=== PATIENT | female | born 1995 | race Caucasian/White ===

== ENCOUNTER 2017-06-19 13:53 | Emergency (ER) | payer BC ==
[2017-06-19 14:13] VITALS: BP 111/60; PULSE 69; RESP 18; TEMP 98.5; O2SAT 99
[2017-06-19] MEDS ORDERED: Iohexol 300 100 ML IJ ONE (15:44)
[2017-06-19] MEDS ORDERED: Sodium Chloride 0.9% 50 ML IV ONE (15:45)
--- NOTE | 2017-06-19 15:48 | ED PDOC ---
HPI: Abdomen Time Seen by Provider: 06/19/17 15:14 Chief Complaint (Nursing): Abdominal Pain Chief Complaint (Provider): Abdominal Pain History Per: Patient History/Exam Limitations: no limitations Onset/Duration Of Symptoms: Days Current Symptoms Are (Timing): Still Present Additional Complaint(s): 21 year old female presents to the emergency department with a complaint of a left-sided abdominal pain with fever, nausea, and vomiting x2 days. Patient has a history of diverticulitis. Denies diarrhea or urinary symptoms. Past Medical History Reviewed: Historical Data, Nursing Documentation, Vital Signs Vital Signs: Last Vital Signs Temp 98.5 F 06/19/17 14:12 Pulse 69 06/19/17 14:12 Resp 18 06/19/17 14:12 BP 111/60 06/19/17 14:12 Pulse Ox 99 06/19/17 15:48 - Medical History PMH: Asthma, Diverticulitis - Family History Family History: States: Diabetes, Hypertension - Social History Current smoker - smoking cessation education provided: No - Home Medications Home Medications: Ambulatory Orders Medication Instructions Recorded Ciprofloxacin/Ciprofloxa HCl 500 mg PO Q12 #14 tab 01/31/15 [Ciprofloxacin] Dicyclomine [Bentyl] 20 mg PO Q12 PRN #20 tab 01/31/15 Metronidazole [Flagyl] 500 mg PO Q12 #20 tab 01/31/15 Naproxen [Naprosyn] 500 mg PO Q12H #20 tab 06/19/17 - Allergies Allergies/Adverse Reactions: Allergies Allergy/AdvReac Type Severity Reaction Status Date / Time No Known Allergies Allergy Verified 01/30/15 21:27 Review of Systems ROS Statement: Except As Marked, All Systems Reviewed And Found Negative (As per HPI, otherwise negative) Constitutional: Positive for: Fever Gastrointestinal: Positive for: Nausea, Vomiting, Abdominal Pain. Negative for : Diarrhea Genitourinary Female: Negative for: Dysuria, Frequency, Incontinence, Hematuria Physical Exam - Reviewed Nursing Documentation Reviewed: Yes - Physical Exam Appears: Positive for: No Acute Distress Head Exam: Positive for: NORMAL INSPECTION Skin: Positive for: Normal Color, Warm, Dry Cardiovascular/Chest: Positive for: Regular Rate, Rhythm. Negative for: Murmur Respiratory: Positive for: Normal Breath Sounds. Negative for: Accessory Muscle Use, Respiratory Distress Gastrointestinal/Abdominal: Positive for: Soft, Tenderness (Mild LLQ tenderness) . Negative for: Normal Exam, Guarding, Rebound Back: Positive for: Normal Inspection. Negative for: L CVA Tenderness, R CVA Tenderness Neurologic/Psych: Positive for: Alert, Oriented (x3) - Laboratory Results Result Diagrams: 06/19/17 15:40 06/19/17 15:40 - ECG O2 Sat by Pulse Oximetry: 99 (RA) Pulse Ox Interpretation: Normal Medical Decision Making Medical Decision Making: Time: 1528 Initial Impression: Abdominal pain Initial Plan: VBG Shock Panel CMP Urine DIP Urine Preg CBC w. diff Iohexol 100 ml IJ Blood culture Abd & Pelvis IV Contrast CT reevaluation Scribe Attestation: Documented by Bryanna Blum, acting as a scribe for Abdi Lorenzo MD. Provider Scribe Attestation: All medical record entries made by the Scribe were at my direction and personally dictated by me. I have reviewed the chart and agree that the record accurately reflects my personal performance of the history, physical exam, medical decision making, and the department course for this patient. I have also personally directed, reviewed, and agree with the discharge instructions and disposition. Disposition - Clinical Impression Clinical Impression: Ovarian cyst - Patient ED Disposition Is Patient to be Admitted: No Counseled Patient/Family Regarding: Studies Performed, Diagnosis, Need For Followup, Rx Given - Disposition Referrals: [facility] [Outside] Disposition: Routine/Home Disposition Time: 17:34 Condition: FAIR Prescriptions: Naproxen [Naprosyn] 500 mg PO Q12H #20 tab Instructions: Ovarian Cyst (ED) Forms: [employer] (Swiss)
[2017-06-19 15:49] LABS: VENOUS BLOOD GAS BASE EXCESS 2.6 mmol/L (0.0-2.0); VENOUS BLOOD GAS PCO2 50 mmHg (40-60); VENOUS BLOOD GAS PO2 19 mm/Hg (30-55); VENOUS BLOOD PH 7.37 (7.32-7.43)
[2017-06-19 16:06] LABS: ALB/GLOB RATIO 1.3 (1.0-2.1); ALBUMIN 4.3 g/dL (3.5-5.0); ALT/SGPT 22 U/L (9-52); AST/SGOT 18 U/L (14-36); BASO # 0.1 K/uL (0.0-0.2); BASO % 1.1 % (0.0-2.0); BLOOD UREA NITROGEN 11 mg/dl (7-17); CALCIUM 9.1 mg/dL (8.4-10.2); EOS # 0.2 K/uL (0.0-0.7); EOS % 2.6 % (0.0-4.0); GFR AFRICAN-AMERICAN > 60; GFR NON-AFRICAN AMERICAN > 60; HEMOGLOBIN 13.4 g/dL (12.0-16.0); LYMPH # 1.8 K/uL (1.0-4.3); LYMPH % 27.9 % (20.0-40.0); MEAN CELL VOLUME 85.5 fl (81.0-99.0); MEAN CORPUSCULAR HEMOGLOBIN 28.3 pg (27.0-31.0); MEAN CORPUSCULAR HGB CONC 33.1 g/dL (33.0-37.0); MEAN PLATELET VOLUME 10.1 fl (7.2-11.7); MONO # 0.7 K/uL (0.0-0.8); MONO % 10.7 % (0.0-10.0); NEUT # 3.7 K/uL (1.8-7.0); NEUT % 57.7 % (50.0-75.0); NRBC % 0.1 % (0.0-0.0); RBC 4.73 Mil/uL (3.80-5.20); RED CELL DISTRIBUTION WIDTH 12.7 % (11.5-14.5); WHITE BLOOD COUNT 6.4 K/uL (4.8-10.8)
--- NOTE | 2017-06-19 17:01 | CT ---
PROCEDURE: CT Abdomen and Pelvis with contrast HISTORY: h/o diverticulitis COMPARISON: 01/31/2015 TECHNIQUE: Contrast dose: 95 mL Omnipaque 300 Radiation dose: Total exam DLP = 725.17 mGy-cm. This CT exam was performed using one or more of the following dose reduction techniques: Automated exposure control, adjustment of the mA and/or kV according to patient size, and/or use of iterative reconstruction technique. FINDINGS: LOWER THORAX: Unremarkable. LIVER: Unremarkable. No gross lesion or ductal dilatation. GALLBLADDER AND BILE DUCTS: Unremarkable. PANCREAS: Unremarkable. No gross lesion or ductal dilatation. SPLEEN: Unremarkable. ADRENALS: Unremarkable. No mass. KIDNEYS AND URETERS: Unremarkable. No hydronephrosis. No solid mass. VASCULATURE: Unremarkable. No aortic aneurysm. BOWEL: Sigmoid diverticulosis without evidence of diverticulitis. No evidence of bowel obstruction. No abnormal bowel loops. APPENDIX: Normal appendix. PERITONEUM: Small amount of fluid in cul-de-sac, nonspecific. LYMPH NODES: No retroperitoneal or pelvic lymphadenopathy. There are innumerable lymph nodes noted within the small bowel mesenteric as on prior examination, consistent with nonspecific mesenteric adenitis. BLADDER: Nondistended REPRODUCTIVE: Normal uterus. In the right ovary, there is an irregularly-shaped peripherally enhancing 2.0 cm structure, most likely an involuting or ruptured follicular cyst. BONES: No acute fracture. OTHER FINDINGS: None. IMPRESSION: Involuting/ruptured right ovarian follicular cyst. Findings consistent with mesenteric adenitis. No evidence of colitis.
== END 2017-06-19 17:55 | disposition home or self-care (01) ==
LOC: H.ER 13:53
DX: N83.202 Unspecified ovarian cyst, left side (principal); J45.909 Unspecified asthma, uncomplicated
CPT/HCPCS: 74177; 80053; 81025; 82803; 85025; 87040; 99282; Q9967

== ENCOUNTER 2017-12-15 18:57 | Emergency (ER) | payer BC ==
[2017-12-15 19:28] VITALS: TEMP 98.3; O2SAT 98
[2017-12-15 19:29] VITALS: BMI 29.2
[2017-12-15 20:47] LABS: BASO # 0.1 K/uL (0.0-0.2); BASO % 0.9 % (0.0-2.0); EOS # 0.1 K/uL (0.0-0.7); EOS % 1.3 % (0.0-4.0); HEMOGLOBIN 13.2 g/dL (12.0-16.0); LYMPH # 2.7 K/uL (1.0-4.3); LYMPH % 36.9 % (20.0-40.0); MEAN CELL VOLUME 86.4 fl (81.0-99.0); MEAN CORPUSCULAR HEMOGLOBIN 29.4 pg (27.0-31.0); MEAN PLATELET VOLUME 10.1 fl (7.2-11.7); MONO # 0.6 K/uL (0.0-0.8); MONO % 7.8 % (0.0-10.0); NEUT # 3.9 K/uL (1.8-7.0); NEUT % 53.1 % (50.0-75.0); RBC 4.48 Mil/uL (3.80-5.20); RED CELL DISTRIBUTION WIDTH 12.8 % (11.5-14.5); WHITE BLOOD COUNT 7.3 K/uL (4.8-10.8)
[2017-12-15 20:52] LABS: ALB/GLOB RATIO 1.4 (1.0-2.1); ALBUMIN 4.3 g/dL (3.5-5.0); ALT/SGPT 23 U/L (9-52); AST/SGOT 35 U/L (14-36); BLOOD UREA NITROGEN 12 mg/dl (7-17); CALCIUM 9.4 mg/dL (8.4-10.2); GFR AFRICAN-AMERICAN > 60; GFR NON-AFRICAN AMERICAN > 60
--- NOTE | 2017-12-15 21:12 | ED PDOC ---
HPI: Abdomen Time Seen by Provider: 12/15/17 19:37 Chief Complaint (Nursing): Abdominal Pain Chief Complaint (Provider): Abdominal pain History Per: Patient History/Exam Limitations: no limitations Onset/Duration Of Symptoms: Days (3) Outside of [place] travel?: No Current Symptoms Are (Timing): Still Present Additional History Per: Patient Additional Complaint(s): 22yo female, history of ovarian cysts, diverticular disease, comes to ER with complaints of abdominal pin x 3 days. Patient states she developed the left sided abdominal pain 3 days ago with associated nausea and poor appetite. She states since onset, the pain is intermittent and she currently is asymptomatic. She states her last normal bowel movement was 3 days ago but that is normal for her. Otherwise, denies any diarrhea, vomiting, and offers no additional complaints. Patient does state she had diarrhea earlier this week which resolved spontaneously. Abnormal Vaginal Bleeding: No Past Medical History Reviewed: Historical Data, Nursing Documentation, Vital Signs Vital Signs: Last Vital Signs Temp 98.3 F 12/15/17 19:28 Pulse 66 12/15/17 19:28 Resp 16 12/15/17 19:28 BP 105/64 12/15/17 19:28 Pulse Ox 98 12/15/17 22:50 - Medical History PMH: Asthma, Diverticulitis Denies: Chronic Kidney Disease - Surgical History Surgical History: No Surg Hx - Family History Family History: States: Diabetes, Hypertension - Home Medications Home Medications: Ambulatory Orders Medication Instructions Recorded Ciprofloxacin/Ciprofloxa HCl 500 mg PO Q12 #14 tab 01/31/15 [Ciprofloxacin] Dicyclomine [Bentyl] 20 mg PO Q12 PRN #20 tab 01/31/15 Metronidazole [Flagyl] 500 mg PO Q12 #20 tab 01/31/15 Naproxen [Naprosyn] 500 mg PO Q12H #20 tab 06/19/17 Naproxen [Naprosyn] 500 mg PO Q12 #14 tab 12/15/17 - Allergies Allergies/Adverse Reactions: Allergies Allergy/AdvReac Type Severity Reaction Status Date / Time No Known Allergies Allergy Verified 12/15/17 19:29 Review of Systems ROS Statement: Except As Marked, All Systems Reviewed And Found Negative Constitutional: Negative for: Fever, Chills Gastrointestinal: Positive for: Nausea, Abdominal Pain, Other (decreased appetite). Negative for: Diarrhea Genitourinary Female: Negative for: Dysuria, Frequency, Hematuria Physical Exam - Reviewed Nursing Documentation Reviewed: Yes Vital Signs Reviewed: Yes - Physical Exam Appears: Positive for: Non-toxic, No Acute Distress Head Exam: Positive for: ATRAUMATIC, NORMAL INSPECTION, NORMOCEPHALIC Skin: Positive for: Normal Color Eye Exam: Positive for: Normal appearance Neck: Positive for: Supple Cardiovascular/Chest: Positive for: Regular Rate, Rhythm Respiratory: Positive for: Normal Breath Sounds Gastrointestinal/Abdominal: Positive for: Soft, Tenderness (mild suprapubic tenderness). Negative for: Guarding, Rebound Back: Positive for: Normal Inspection. Negative for: L CVA Tenderness, R CVA Tenderness Extremity: Positive for: Normal ROM. Negative for: Pedal Edema Neurologic/Psych: Positive for: Alert, Oriented. Negative for: Motor/Sensory Deficits - Laboratory Results Result Diagrams: 12/15/17 20:31 12/15/17 20:31 - ECG O2 Sat by Pulse Oximetry: 98 (RA) Pulse Ox Interpretation: Normal Medical Decision Making Medical Decision Making: Impression: 22yo female with abdominal pain, history of ovarian cyst and diverticular disease Plan: -- Labs -- US Transvaginal 2250 US Transvaginal FINDINGS: Uterus/cervix: No myometrial mass. Endometrium: 0.7 cm in thickness. Right ovary: No mass. Small follicles. Normal flow. Left ovary: 1.4 x 1.0 x 1.2 cm dominant follicle. Small follicles. Normal flow. Other findings: 1.1 x 1.0 x 0.9 cm LEFT paraovarian cyst. Free fluid: No significant free fluid. IMPRESSION: 1. No acute findings. 2. Non-acute findings are described above. 2256 Labs reviewed and show no clinically significant abnormalities. Patient states she has improvement in symptoms and is stable for discharge home. She states she will follow up with her [employer] Dr. Gregory. Diagnosis: Ovarian cyst Scribe Attestation: Documented by Moriah Ferrell, acting as a scribe for John Colorado MD. Provider Scribe Attestation: All medical record entries made by the Scribe were at my direction and personally dictated by me. I have reviewed the chart and agree that the record accurately reflects my personal performance of the history, physical exam, medical decision making, and the department course for this patient. I have also personally directed, reviewed, and agree with the discharge instructions and disposition. Disposition - Clinical Impression Clinical Impression: Ovarian cyst - Disposition Disposition: Routine/Home Disposition Time: 22:56 Condition: STABLE Prescriptions: Naproxen [Naprosyn] 500 mg PO Q12 #14 tab Instructions: Ovarian Cysts Forms: [employer] (Japanese)
[2017-12-15 23:55] VITALS: BP 109/69; PULSE 81; RESP 20
--- NOTE | 2017-12-16 10:37 | US ---
Date of service: 12/15/2017 HISTORY: Abdominal pain. Relevant medical history: October 2017. Intermittent bleeding. COMPARISON: None available. TECHNIQUE: Transvaginal only. Real -time technique with 2D, duplex and color Doppler FINDINGS: UTERUS: Measures 7.3 x 3 x 4.0 cm. Normal in size and appearance. No fibroid or other mass lesion seen. ENDOMETRIUM: Measures 6.8 mm in diameter. No ultrasound findings to suggest gestational sac, fluid, debris, mass or polyp or other pathologic process within the endometrium. CERVIX: No cervical abnormality identified. RIGHT OVARY: Measures 1.8 x 2 x 2.7 cm. No solid mass. Normal flow. Multiple subcentimeter follicles. LEFT OVARY: Measures 1.8 x 2.5 x 3.1 cm. Complex likely hemorrhagic cyst 1 x 1.1 cm. Normal flow. Multiple subcentimeter follicles. Additional dominant cyst/follicle 1.2 x 1.4 cm. FREE FLUID: No significant free fluid noted. OTHER FINDINGS: None. IMPRESSION: No acute findings related to/accounting for the clinical presentation. Additional benign and/or incidental findings described above. Concordant results (preliminary interpretation) provided by [facility]. Procedure Completed: 21:45. Preliminary ([facility]) Report: Dictated and Authenticated: 22:06. Final Interpretation: 10:35. December 16, 2017.
== END 2017-12-15 23:59 | disposition home or self-care (01) ==
LOC: H.ER 18:57
DX: N83.202 Unspecified ovarian cyst, left side (principal)

== ENCOUNTER 2017-12-18 07:43 | Emergency (ER) | payer BC ==
[2017-12-18 07:43] VITALS: BMI 29.2
[2017-12-18 07:52] VITALS: RESP 16; TEMP 98.1; O2SAT 98
--- NOTE | 2017-12-18 08:44 | ED PDOC ---
HPI: Abdomen Time Seen by Provider: 12/18/17 08:04 Chief Complaint (Nursing): Abdominal Pain Chief Complaint (Provider): Abdominal Pain History Per: Patient History/Exam Limitations: no limitations Onset/Duration Of Symptoms: Days Outside of [place] travel?: No Current Symptoms Are (Timing): Still Present Context: Other Severity: None Location Of Pain/Discomfort: RLQ Quality Of Discomfort: "Pain" Associated Symptoms: Diarrhea. denies: Fever, Nausea, Vomiting, Back Pain, Chest Pain, Constipation Exacerbating Factors: None Alleviating Factors: None Last Bowel Movement: Yesterday Additional Complaint(s): 22 year old female with past medical history of diverticulitis, ulcerative colitis and ruptured ovarian cysts (right side) presents to the emergency department complaining of constant right and left sided abdominal pain which worsened yesterday. Patient reports that she was seen here in the ED for pain on the left side but now the pain has developed on the right side as well. She states when she was seen she had a pelvic ultrasound performed and was told she had an ovarian cyst. Patient also notes some diarrhea. Denies nausea, vomiting, fever, urinary problems, back pain. PMD: [place] Abnormal Vaginal Bleeding: No Past Medical History Reviewed: Historical Data, Nursing Documentation, Vital Signs Vital Signs: Last Vital Signs Temp 98.1 F 12/18/17 07:50 Pulse 64 12/18/17 07:50 Resp 16 12/18/17 07:50 BP 111/54 L 12/18/17 07:50 Pulse Ox 98 12/18/17 12:27 - Medical History PMH: Asthma, Diverticulitis Denies: Chronic Kidney Disease - Surgical History Surgical History: Denies: Appendectomy (Inflamed appendix 2017) - Family History Family History: States: Diabetes, Hypertension - Social History Current smoker - smoking cessation education provided: No Alcohol: Social Drugs: Denies - Immunization History Hx Tetanus Toxoid Vaccination: No Hx Influenza Vaccination: Yes Hx Pneumococcal Vaccination: No - Home Medications Home Medications: Ambulatory Orders Medication Instructions Recorded Ciprofloxacin/Ciprofloxa HCl 500 mg PO Q12 #14 tab 01/31/15 [Ciprofloxacin] Dicyclomine [Bentyl] 20 mg PO Q12 PRN #20 tab 01/31/15 Metronidazole [Flagyl] 500 mg PO Q12 #20 tab 01/31/15 Naproxen [Naprosyn] 500 mg PO Q12H #20 tab 06/19/17 Naproxen [Naprosyn] 500 mg PO Q12 #14 tab 12/15/17 - Allergies Allergies/Adverse Reactions: Allergies Allergy/AdvReac Type Severity Reaction Status Date / Time No Known Allergies Allergy Verified 12/18/17 08:16 Review of Systems ROS Statement: Except As Marked, All Systems Reviewed And Found Negative Constitutional: Negative for: Fever, Chills Gastrointestinal: Positive for: Abdominal Pain, Diarrhea. Negative for: Nausea , Vomiting, Constipation Physical Exam - Reviewed Nursing Documentation Reviewed: Yes Vital Signs Reviewed: Yes - Physical Exam Appears: Positive for: Non-toxic, No Acute Distress Head Exam: Positive for: ATRAUMATIC, NORMAL INSPECTION, NORMOCEPHALIC Skin: Positive for: Normal Color, Warm, Dry. Negative for: Rash Eye Exam: Positive for: Normal appearance, EOMI, PERRL. Negative for: Nystagmus ENT: Negative for: Nasal Congestion, Tonsillar Exudate, Tonsillar Swelling Neck: Positive for: Normal, Painless ROM, Supple Cardiovascular/Chest: Positive for: Regular Rate, Rhythm, Chest Non Tender. Negative for: Tachycardia Respiratory: Positive for: Normal Breath Sounds. Negative for: Rales, Rhonchi, Wheezing, Respiratory Distress Gastrointestinal/Abdominal: Positive for: Bowel Sounds, Soft, Tenderness (mild right lower quadrant tenderness). Negative for: Mass, Guarding, Rebound Back: Positive for: Normal Inspection. Negative for: L CVA Tenderness, R CVA Tenderness, Vertebral Tenderness, Muscle Spasm Extremity: Positive for: Normal ROM. Negative for: Tenderness, Calf Tenderness , Deformity, Swelling Neurologic/Psych: Positive for: Alert, Oriented, Gait - Laboratory Results Result Diagrams: 12/18/17 08:45 12/18/17 08:45 - ECG O2 Sat by Pulse Oximetry: 98 (RA) Pulse Ox Interpretation: Normal - Progress Re-evaluation Time: 12:20 Condition: Re-examined, Improved Medical Decision Making Medical Decision Makin Initial Impression 22 year old female presenting with abdominal pain Differentials: ovarian cyst rupture, ovarian torsion, acute appendicitis Initial Plan: * BMP * Upreg * Udip * CBC * Urinalysis * US transvaginal * Reevaluation 1212 12/18/2017 PROCEDURE: CT Abdomen and Pelvis with contrast HISTORY: RLQ pain COMPARISON: CT scan of the abdomen and pelvis dated 06/19/2017 TECHNIQUE: Contrast dose: 95 mL Omnipaque 300 Radiation dose: Total exam DLP = 552 mGy-cm. This CT exam was performed using one or more of the following dose reduction techniques: Automated exposure control, adjustment of the mA and/or kV according to patient size, and/or use of iterative reconstruction technique. FINDINGS: LOWER THORAX: Unremarkable. LIVER: Hepatic steatosis. No gross lesion or ductal dilatation. GALLBLADDER AND BILE DUCTS: Unremarkable. PANCREAS: Unremarkable. No gross lesion or ductal dilatation. SPLEEN: Unremarkable. ADRENALS: Unremarkable. No mass. KIDNEYS AND URETERS: Unremarkable. No hydronephrosis. No solid mass. VASCULATURE: Unremarkable. No aortic aneurysm. BOWEL: Unremarkable. No obstruction. No gross mural thickening. APPENDIX: Normal appendix. PERITONEUM: Unremarkable. No free fluid. No free air. LYMPH NODES: Unremarkable. No enlarged lymph nodes. BLADDER: Unremarkable. REPRODUCTIVE: Dominant left ovarian follicle measuring up to 2.1 cm. BONES: No acute fracture. OTHER FINDINGS: None. IMPRESSION: No evidence of acute appendicitis. Dominant left ovarian follicle measuring up to 2.1 cm. 1220 Patient reports her pain is resolved. Previous US results reviewed. Labs and UA reviewed and unremarkable. Patient is stable for discharge. Return instructions given. Documented by Yaneli Tomlin acting as a scribe for Christi Sunshine MD. All medical record entries made by the Scribe were at my direction and personally dictated by me. I have reviewed the chart and agree that the record accurately reflects my personal performance of the history, physical exam, medical decision making, and the department course for this patient. I have also personally directed, reviewed, and agree with the discharge instructions and disposition. Disposition - Clinical Impression Clinical Impression: Abdominal pain - Patient ED Disposition Is Patient to be Admitted: No Doctor Will See Patient In The: Office Counseled Patient/Family Regarding: Studies Performed, Diagnosis, Need For Followup - Disposition Referrals: Deonte Banda MD [Family Provider] - Disposition: Routine/Home Disposition Time: 12:25 Condition: GOOD Additional Instructions: Take your medications as instructed. Follow up with your PCP in 2-3 days. Return for worsening. Instructions: Acute Abdomen (Belly Pain)
[2017-12-18 08:56] LABS: BASO # 0.1 K/uL (0.0-0.2); BASO % 1.1 % (0.0-2.0); EOS # 0.1 K/uL (0.0-0.7); EOS % 1.7 % (0.0-4.0); HEMOGLOBIN 13.6 g/dL (12.0-16.0); LYMPH # 1.6 K/uL (1.0-4.3); LYMPH % 22.8 % (20.0-40.0); MEAN CELL VOLUME 86.9 fl (81.0-99.0); MEAN CORPUSCULAR HEMOGLOBIN 29.5 pg (27.0-31.0); MEAN CORPUSCULAR HGB CONC 33.9 g/dL (33.0-37.0); MEAN PLATELET VOLUME 10.2 fl (7.2-11.7); MONO # 0.6 K/uL (0.0-0.8); NEUT # 4.7 K/uL (1.8-7.0); NEUT % 66.4 % (50.0-75.0); NRBC % 0.1 % (0.0-0.0); RBC 4.62 Mil/uL (3.80-5.20); RED CELL DISTRIBUTION WIDTH 12.6 % (11.5-14.5); WHITE BLOOD COUNT 7.1 K/uL (4.8-10.8)
[2017-12-18 09:06] LABS: SQUAMOUS EPITHIAL 5 /hpf (0-5); URINE AMORPHOUS SEDIMENT RARE /ul (<OCC); URINE BILIRUBIN NEGATIVE (NEGATIVE); URINE BLOOD NEGATIVE (NEGATIVE); URINE CLARITY SLIGHTY-CLOUDY (Clear); URINE COLOR YELLOW (YELLOW); URINE GLUCOSE (UA) NEG (Normal); URINE HYALINE CAST 0-2 /hpf (0-2); URINE LEUKOCYTE ESTERASE NEG Leu/uL (Negative); URINE PROTEIN NEGATIVE (NEGATIVE)
[2017-12-18 09:15] LABS: BLOOD UREA NITROGEN 18 mg/dl (7-17); CALCIUM 9.4 mg/dL (8.4-10.2); GFR AFRICAN-AMERICAN > 60; GFR NON-AFRICAN AMERICAN > 60
[2017-12-18] MEDS ORDERED: Iohexol 300 100 ML IJ ONE (11:08)
[2017-12-18] MEDS ORDERED: Sodium Chloride 0.9% 50 ML IV ONE (11:09)
--- NOTE | 2017-12-18 12:13 | CT ---
Date of service: 12/18/2017 PROCEDURE: CT Abdomen and Pelvis with contrast HISTORY: RLQ pain COMPARISON: CT scan of the abdomen and pelvis dated 06/19/2017 TECHNIQUE: Contrast dose: 95 mL Omnipaque 300 Radiation dose: Total exam DLP = 552 mGy-cm. This CT exam was performed using one or more of the following dose reduction techniques: Automated exposure control, adjustment of the mA and/or kV according to patient size, and/or use of iterative reconstruction technique. FINDINGS: LOWER THORAX: Unremarkable. LIVER: Hepatic steatosis. No gross lesion or ductal dilatation. GALLBLADDER AND BILE DUCTS: Unremarkable. PANCREAS: Unremarkable. No gross lesion or ductal dilatation. SPLEEN: Unremarkable. ADRENALS: Unremarkable. No mass. KIDNEYS AND URETERS: Unremarkable. No hydronephrosis. No solid mass. VASCULATURE: Unremarkable. No aortic aneurysm. BOWEL: Unremarkable. No obstruction. No gross mural thickening. APPENDIX: Normal appendix. PERITONEUM: Unremarkable. No free fluid. No free air. LYMPH NODES: Unremarkable. No enlarged lymph nodes. BLADDER: Unremarkable. REPRODUCTIVE: Dominant left ovarian follicle measuring up to 2.1 cm. BONES: No acute fracture. OTHER FINDINGS: None. IMPRESSION: No evidence of acute appendicitis. Dominant left ovarian follicle measuring up to 2.1 cm.
[2017-12-18 12:45] VITALS: BP 110/70; PULSE 68
== END 2017-12-18 12:44 | disposition home or self-care (01) ==
LOC: H.ER 07:43
DX: R10.31 Right lower quadrant pain (principal)
CPT/HCPCS: 74177; 80048; 81003; 81025; 85025; 99283; Q9967